=== PATIENT | male | born 1985 | race Two or more races ===

== ENCOUNTER 2020-12-18 12:40 | Emergency (ER) | payer OTHER ==
[~2020-12-18] VITALS: Ht 170.2 cm; Wt 79.4 kg
[2020-12-18 13:20] VITALS: BP 142/95
== END 2020-12-18 15:51 | disposition home or self-care (01) ==
LOC: ER 12:40
DX: S46.912A Strain of unspecified muscle, fascia and tendon at shoulder and upper arm level, left arm, initial encounter (principal); V49.49XA Driver injured in collision with other motor vehicles in traffic accident, initial encounter; Y93.89 Activity, other specified; Y92.488 Other paved roadways as the place of occurrence of the external cause; Y99.8 Other external cause status
CPT/HCPCS: 73030